=== PATIENT | male | born 1985 | race Caucasian/White ===

== ENCOUNTER 2023-02-21 14:13 | Emergency (ER) | payer OTHER ==
[~2023-02-21] VITALS: Ht 188 cm; Wt 133.6 kg
[~2023-02-21 14:13] MED LIST: ASPIRIN 81M81 MG/TA2 PO; COZAAR 25MG25 MG/TAB PO; DOXYCYCLINE 10100 MG PO; MONODOX100 PO; NICODERM C21 MG/PATC TD; NORVASC 10MG10 MG PO; PREDNISONE20 MG PO; PREDNISONE50 MG PO; PROAIR HFA0.09 MG/AC IH
[2023-02-21 14:21] VITALS: TEMP 97.8
[2023-02-21] MEDS ORDERED: ALBUTEROL0.83 MG/ML IH ×2 (15:25)
[2023-02-21] MEDS ORDERED: PREDNISONE20 MG PO (15:25)
[2023-02-21] MEDS ORDERED: ZESTRIL 10MG10 MG PO (15:30)
[2023-02-21 15:40] VITALS: BP 162/100; PULSE 94
[2023-02-21] MEDS ORDERED: PROAIR HFA0.09 MG/AC IH (17:35)
== END 2023-02-21 15:43 | disposition home or self-care (01) ==
LOC: COL.ER 14:13
DX: J40 Bronchitis, not specified as acute or chronic (principal); J98.01 Acute bronchospasm; Z87.891 Personal history of nicotine dependence; Z79.899 Other long term (current) drug therapy
CPT/HCPCS: J7512